=== PATIENT | female | born 1995 | race African-American/Black ===

== ENCOUNTER 2016-11-16 20:00 | Emergency (ER) | payer MEDICAID ==
[~2016-11-16] VITALS: Ht 162.6 cm; Wt 55.0 kg
[~2016-11-16 20:00] MED LIST: IOHEXOL-300 100 ML BOTTLE ONE; SODIUM CHLORIDE 0.9% 10ML VIAL ONE
[2016-11-17 02:46] LABS: CLARITY URINE CLEAR (CLEAR); COLOR URINE YELLOW (YELLOW); GLUCOSE URINE NEGATIVE (NEGATIVE); KETONES URINE NEGATIVE (NEGATIVE); LEUKOCYTE ESTERASE URINE NEGATIVE (NEGATIVE); NITRITE URINE NEGATIVE (NEGATIVE); OCCULT BLOOD URINE NEGATIVE (NEGATIVE); PROTEIN URINE NEGATIVE (NEGATIVE); SPECIFIC GRAVITY URINE 1.021 (1.005-1.030)
[2016-11-17 03:32] LABS: BASOPHILS % 0.8 % (0.0-2.0); EOSINOPHILS % 0.5 % (0.0-5.0); HEMATOCRIT. 39.1 % (36.0-48.0); HEMOGLOBIN. 13.6 g/dL (12.0-16.0); LYMPHOCYTES % 32.1 % (20.0-50.0); MEAN CORPUSCULAR HEMOGLOBIN 30.2 pg (28.0-32.0); MEAN PLATELET VOLUME 7.9 fl (7.4-10.4); MONOCYTES % 3.5 % (2.0-8.0); NEUTROPHILS % 63.1 % (40.0-76.0); PLATELET 215 x1000/uL (130-400); RED CELL DISTRIBUTION WIDTH 13.8 % (11.6-14.6)
[2016-11-17 03:44] LABS: CARBON DIOXIDE 27 mEq/L (21-32); CHLORIDE 103 mEq/L (98-107)
[2016-11-17 06:50] VITALS: BP 110/73
== END 2016-11-17 06:57 | disposition home or self-care (01) ==
LOC: ER 20:00
DX: R35.0 Frequency of micturition (principal); R10.2 Pelvic and perineal pain; R30.9 Painful micturition, unspecified; F12.10 Cannabis abuse, uncomplicated
CPT/HCPCS: 36415; 74177; 80053; 81003; 81025; 85025; 99285; A4216; Q9967; Z7610

== ENCOUNTER 2018-11-29 05:37 | Emergency (ER) | payer MEDICAID ==
[~2018-11-29] VITALS: Ht 154.9 cm; Wt 61.0 kg
[2018-11-29 09:30] VITALS: BP 110/74
== END 2018-11-29 09:45 | disposition home or self-care (01) ==
LOC: ER 05:37
DX: J18.9 Pneumonia, unspecified organism (principal)
CPT/HCPCS: 71045; 81025; 99283

== ENCOUNTER 2018-12-11 05:08 | Emergency (ER) | payer MEDICAID ==
[~2018-12-11] VITALS: Ht 162.6 cm; Wt 63.3 kg
[2018-12-11] MEDS ORDERED: ALBUTEROL (0.083%) 2.5MG/3ML NEB HHN STA (06:34)
[2018-12-11 07:37] VITALS: BP 125/78
== END 2018-12-11 07:50 | disposition home or self-care (01) ==
LOC: ER 05:08
DX: R05 Cough (principal); F12.10 Cannabis abuse, uncomplicated
CPT/HCPCS: 71045; 81025; 94640; 99283; J7611; Z7610